=== PATIENT | male | born 1985 | race Caucasian/White ===

== ENCOUNTER 2024-08-27 09:10 | Emergency (ER) | payer MEDICAID, SELFPAY ==
[2024-08-27 10:01] VITALS: BP 170/90; PULSE 64; RESP 16; TEMP 36.8; O2SAT 97; BMI 45.1
--- NOTE | 2024-08-27 10:10 | XR_ITS ---
Examination: CT abdomen with intravenous contrast CT pelvis with intravenous contrast 2-D coronal reconstructions 2-D sagittal reconstructions Date and time of exam:August 27, 2024 1112 hours INDICATIONS: Lower abdominal pain radiating to the left flank with nausea and vomiting today. CTDI: vol (mGy) 23.2 DLP: (mGycm) 1608 Technique: Multiple axial sections of the abdomen and pelvis have been obtained. 64 slice high-resolution scanner used. 3 mm axial sections have been obtained, post intravenous injection 60 cc [id number] 2-D sagittal, coronal reconstructions obtained. Low dose protocols were performed. One or more of the following dose reduction techniques were used; automated exposure control, adjustment of the mA and/or KV according to patient size, use of iterative reconstruction technique. Findings: Diffuse fatty infiltration throughout the liver, no focal liver or splenic lesions No gallstones No pancreatic or adrenal mass Minimal left hydronephrosis secondary to 2 mm distal left ureterovesical junction calculus No right hydronephrosis Aorta normal size No bowel obstruction Normal appendix No diverticulitis No prostatomegaly IMPRESSION: Minimal left hydronephrosis secondary to 2 mm distal left ureterovesical junction calculus
--- NOTE | 2024-08-27 10:11 | PD.EDRME ---
Rapid Medical Screening Exam RME Arrival date/time: 08/27/24 09:10 This is a 39-year-old male presents emergency department complaints of lower abdominal pain x 2 days. I have greeted and performed a focused initial assessment of this patient. Initial appropriate labs ordered at this time. A comprehensive ED assessment and evaluation of the patient and analysis of all test and completion of medical decision making process will be conducted by additional ED provider. Chief Complaint: Abdominal Pain Time Seen by Provider: 08/27/24 09:34 Vital signs: Vital Signs Temperature 98.2 F 08/27/24 10:01 Pulse Rate 64 08/27/24 10:01 Respiratory Rate 16 08/27/24 10:01 Blood Pressure 170/90 H 08/27/24 10:01 Pulse Oximetry (%) 97 08/27/24 10:01 Oxygen Delivery Method Room Air 08/27/24 10:01
[2024-08-27] MEDS: ONDANSETRON INJ 2 MG/ML INJ 2 ML 4 MG IV (10:27)
[2024-08-27] MEDS: SODIUM CHLORIDE 0.9% 1000 ML 1,000 ML 999 ML IV (10:27)
[2024-08-27] MEDS: MORPHINE SULF INJ 10 MG/ML VIAL 5 MG IVP (10:30)
[2024-08-27 10:34] LABS: Basophils # (Auto) 0.1 Thou/mm3 (0.0-0.2); Basophils % (Auto) 1 % (0-2.5); Eosinophils # (Auto) 0.1 Thou/mm3 (0.0-0.5); Eosinophils % (Auto) 0 % (0-10); Hemoglobin 14.7 g/dL (13.5-16.0); Immature Granulocytes % (Auto) 0 % (0-0); Immature Granulocytes Auto 0.07 Thou/mm3 (0.00-0.00); Lymphocytes # (Auto) 1.6 Thou/mm3 (1.0-4.8); Lymphocytes % (Auto) 9 % (10-50); Mean Corpuscular HGB Conc 33.4 g/dl (31.0-37.0); Mean Corpuscular Hemoglobin 27.1 pg (25.0-35.0); Mean Corpuscular Volume 81 fL (80-100); Monocytes # (Auto) 0.8 Thou/mm3 (0.0-0.8); Monocytes % (Auto) 4 % (0-12); Neutrophils # (Auto) 14.6 Thou/mm3 (1.8-7.7); Neutrophils % (Auto) 85 % (37-80); Nucleated Red Blood Cell % 0 /100 WBC (0); Platelet Count 348 Thou/mm3 (140-440); RDW Standard Deviation 44.7 fL (35.1-43.9); Red Blood Count 5.42 Miln/mm3 (4.50-5.90); White Blood Count 17.2 Thou/mm3 (3.8-10.6)
[2024-08-27 10:59] LABS: Alanine Aminotransferase 21 U/L (10-49); Albumin, Serum 5.2 gm/dL (3.5-5.0); Albumin/Globulin Ratio 1.7 (1.2-2.2); Alkaline Phosphatase 77 U/L (46-116); Anion Gap 9 (7-16); Aspartate Amino Transferase 24 U/L (0-34); BUN/Creatinine Ratio 13 Ratio (12-20); Bilirubin,Total 0.4 mg/dL (0.3-1.2); Blood Urea Nitrogen 15 mg/dL (9-23); Calcium 9.9 mg/dL (8.3-10.6); Calcium (Corrected) 9.9 mg/dL (8.5-10.1); Carbon Dioxide 27.7 mMol/L (20.0-31.0); Chloride 103 mMol/L (98-107); Creatinine (Component) 1.2 mg/dL (0.6-1.3); Estimated Creatinine Clearance 113.4 mL/min (>60); Glucose 177 mg/dL (74-106); Lipase 37 U/L (12-53); Osmolality,Calculated 284 (275-295); Potassium 3.8 mMol/L (3.4-5.1); Sodium 140 mMol/L (136-145); Total Protein 8.2 gm/dL (5.7-8.2); eGFR > 60 See Note
[2024-08-27 11:37] LABS: Collection Type, Urine Clean Catch
[2024-08-27 11:57] LABS: Bacteria,Urine Rare; Bilirubin,Urine Negative (Negative); Blood,Urine 3+ (Negative); Calcium Oxalate Crystals,Urine 1+; Color,Urine Yellow (Lt Yel-Yel); Glucose, Urine Negative (Negative); Hyaline Casts,Urine < 1 /hpf (0-1); Ketones,Urine 1+ (Negative); Leukocyte Esterase,Urine Negative (Negative); Nitrite,Urine Negative (Negative); Protein,Urine 1+ (Neg - Trace); RBC,Urine 191 /hpf (0-3); Specific Gravity,Urine 1.047 (1.001-1.035); Squamous Epithelial Cell,Urine 1 /hpf (0-5); WBC,Urine 4 /hpf (0-5)
[2024-08-27 12:01] LABS: Clarity,Urine Hazy (Clear/Hazy); Sperm,Urine Present
[2024-08-27] MEDS: TAMSULOSIN HCL 0.4 MG CAPSULE PO (13:24)
[2024-08-27] MEDS: KETOROLAC INJ 30 MG/ML VIAL IVP (13:24)
--- NOTE | 2024-08-27 14:13 | PD.EDABDPN ---
ED Abdominal Pain RME/HPI General Chief Complaint: Abdominal Pain Stated complaint: ABD PAIN Time seen by provider: 08/27/24 09:34 Arrival date/time: 08/27/24 09:10 This is a 39-year-old male who presented to the emergency department with complaints of bilateral flank and abdominal pain that began this morning. Patient denied fever, chills no nausea or vomiting. Source: patient and family Mode of arrival: ambulatory RME / HPI RME / HPI narrative: 08/27/24 09:10 This is a 39-year-old male presents emergency department complaints of lower abdominal pain x 2 days. I have greeted and performed a focused initial assessment of this patient. Initial appropriate labs ordered at this time. A comprehensive ED assessment and evaluation of the patient and analysis of all test and completion of medical decision making process will be conducted by additional ED provider. Related Data Previous Rx's ?Medication ?Instructions ?Recorded lorazepam 1 mg tablet (Ativan) 1 mg PO BID PRN anxiety #20 tabs 02/16/20 lorazepam 1 mg tablet (Ativan) 1 mg PO BID PRN anxiety #20 tabs 02/16/20 lorazepam 1 mg tablet (Ativan) 1 mg PO BID PRN anxiety #20 tabs 02/16/20 lorazepam 1 mg tablet (Ativan) 1 mg PO BID PRN anxiety #20 tabs 02/16/20 cephalexin 500 mg capsule 500 mg PO Q8H 7 days #21 caps 08/27/24 ibuprofen 800 mg tablet (IBU) 800 mg PO Q8H #20 tabs 08/27/24 tamsulosin 0.4 mg capsule (Flomax) 0.4 mg PO QDAY #5 caps 08/27/24 Allergies Allergy/AdvReac Type Severity Reaction Status Date / Time No Known Allergies Allergy Verified 02/16/20 04:04 Review of Systems Review of Systems Systems Reviewed: All systems reviewed, normal except as documented Narrative Review of Systems: Gen: No fever, no chills, no weight loss EYES: No discharge, no visual changes, no pain HEENT: No ear pain, no congestion, no sore throat PULM: No shortness of breath, no cough, no congestion CV: No chest pain, no dyspnea on exertion, no palpitations GI: No nausea, no vomiting, no diarrhea, no pain, no constipation : +flank pain, + abdominal pain Musc/skel: No joint pain, no back pain Skin: No rash? Psyc: No hallucinations, no depression Heme/Lymph: No easy bleeding or bruising tendencies Neuro: No weakness, no headache ED Exam Narrative Physical exam: general:39-year-old male appears to be in pain diaphoretic, Sittiing in Exam table in no acute distress, answering questions appropriately HENT: normocephalic, atraumatic, EOMI, PERRLA, moist mucous membranes Chest: chest wall is nontender Cardiac: regular rate and rhythm, normal S1 and S2, no murmurs, rubs, or gallops, capillary refill ?2 seconds Pulmonary: clear to auscultation bilaterally, no wheezing, crackles, or rhonchi Abdominal: active bowel sounds, soft, nontender, nondistended, + CVA tenderness Neuro: A&OX3, CN II-XII intact, sensation grossly intact bilaterally in UE and LE. Skin: no rashes, no ecchymosis Ext: no lower extremity edema Course Quality Measures none Orders Category Date Time Status CT Screening NOW Care 08/27/24 10:11 Completed Insert IV NOW Care 08/27/24 10:[address] abdomen pelvis w con Stat Exams 08/27/24 10:10 Completed CBC Stat Lab 08/27/24 10:18 Completed Comprehensive Metabolic Panel Stat Lab 08/27/24 10:18 Completed Lipase Stat Lab 08/27/24 10:18 Completed Urinalysis Stat Lab 08/27/24 11:33 Completed Ketorolac Inj [Toradol Inj] Med 08/27/24 12:43 Discontinued 30 mg IVP X1 ONE Morphine Inj Med 08/27/24 10:12 Discontinued 5 mg IVP X1 ONE Ondansetron Inj [Zofran Inj] Med 08/27/24 10:11 Discontinued 4 mg IV X1 ONE Sodium Chloride 0.9% 1000 ml [Ns] 1,000 ml Med 08/27/24 10:11 Discontinued IV 999 mls/hr Tamsulosin HCl [Flomax] Med 08/27/24 12:43 Discontinued 0.4 mg PO X1 ONE Vital Signs Vital signs: Vital Signs Temperature 98.2 F 08/27/24 10:01 Pulse Rate 64 08/27/24 10:01 Respiratory Rate 16 08/27/24 10:01 Blood Pressure 170/90 H 08/27/24 10:01 Pulse Oximetry (%) 97 08/27/24 10:01 Oxygen Delivery Method Room Air 08/27/24 10:01 Abdominal Pain MDM MDM Narrative MDM Narrative:: 39-year-old male was evaluated for abdominal pain bilateral flank pain. CT demonstrated he has a stone no severe hydronephrosis noted. After patient was given pain medication and hydration patient symptoms improved to 0 out of 10 pain. Patient's labs reviewed No acute renal failure, no electrolyte imbalance. Urinalysis positive for hematuria. no reported fever nausea or vomiting. Urine output normal here in ED. Patient will be discharged home with a course of antibiotics, Flomax and close follow-up with his PCP. Patient data External records reviewed:: [facility] previous records Clinical information provided by:: patient Social determinants that could affect healthcare access:: none Patient has the following chronic illnesses:: none How is presenting disease/condition affected by chronic disease/condition?: no chronic disease Evaluation data The following diagnostics were reviewed and interpreted by me:: lab results and radiology exam(s) Lab and/or radiology exams considered but not ordered:: no Interpretation Summary: Examination: CT abdomen with intravenous contrast CT pelvis with intravenous contrast 2-D coronal reconstructions 2-D sagittal reconstructions Date and time of exam:August 27, 2024 1112 hours INDICATIONS: Lower abdominal pain radiating to the left flank with nausea and vomiting today. CTDI: vol (mGy) 23.2 DLP: (mGycm) 1608 Technique: Multiple axial sections of the abdomen and pelvis have been obtained. 64 slice high-resolution scanner used. 3 mm axial sections have been obtained, post intravenous injection 60 cc [id number] 2-D sagittal, coronal reconstructions obtained. Low dose protocols were performed. One or more of the following dose reduction techniques were used; automated exposure control, adjustment of the mA and/or KV according to patient size, use of iterative reconstruction technique. Findings: Diffuse fatty infiltration throughout the liver, no focal liver or splenic lesions No gallstones No pancreatic or adrenal mass Minimal left hydronephrosis secondary to 2 mm distal left ureterovesical junction calculus No right hydronephrosis Aorta normal size No bowel obstruction Normal appendix No diverticulitis No prostatomegaly IMPRESSION: Minimal left hydronephrosis secondary to 2 mm distal left ureterovesical junction calculus Medications / Prescriptions Medications or Prescriptions considered but not ordered:: no Medication administrations:: Medication Administration History Discontinued Medications Sodium Chloride (Ns) 1,000 mls @ 999 mls/hr IV .Q1H1M ONE Stop: 08/27/24 11:11 Last Infusion: 08/27/24 11:30 Dose: Infused Documented By: Admin: 08/27/24 10:27 Dose: 999 mls/hr Documented By: AMBER Ketorolac Tromethamine (Ketorolac Inj 30 Mg/Ml Vial) 30 mg IVP X1 ONE Stop: 08/27/24 12:44 Last Admin: 08/27/24 13:24 Dose: 30 mg Documented By: AMBER Morphine Sulfate (Morphine Sulf Inj 10 Mg/Ml Vial) 5 mg IVP X1 ONE Stop: 08/27/24 10:13 Last Admin: 08/27/24 10:30 Dose: 5 mg Documented By: AMBER Ondansetron HCl (Ondansetron Inj 2 Mg/Ml Inj 2 Ml) 4 mg IV X1 ONE; Protocol Stop: 08/27/24 10:12 Last Admin: 08/27/24 10:27 Dose: 4 mg Documented By: AMBER Tamsulosin HCl (Tamsulosin Hcl 0.4 Mg Capsule) 0.4 mg PO X1 ONE Stop: 08/27/24 12:44 Last Admin: 08/27/24 13:24 Dose: 0.4 mg Documented By: AMBER all medications administered and effective Consultations Consultation(s) initiated? (list below): No Diagnosis Differential diagnosis abdominal pain: abdominal pain, acute appendicitis, calculus of kidney, constipation, diverticulitis, gastroenteritis, pancreatitis and small bowel obstruction Most likely diagnosis given after review of the tests above:: renal calculi, Admission Indicated Admission indicated?: not indicated Admission Request Was there a request for admission?: No Disposition Plan Disposition Plan: Discharge Discharge Attestation Discharge Attestation: The patient and all family members were given an opportunity to ask questions and understood the discharge instructions. Discharge instructions specifically effects, indications for sooner follow up or return to the emergency department, and the expected course of current diagnosis. Patient condition: Stable Discharge Plan Plan Patient Disposition: HOME (Self Care) Patient condition on transfer: Stable Prescriptions/Referrals Prescriptions/Med Rec: New tamsulosin [Flomax] 0.4 mg capsule 0.4 mg PO QDAY Qty: 5 0RF cephalexin 500 mg capsule 500 mg PO Q8H 7 Days Qty: 21 0RF ibuprofen [IBU] 800 mg tablet 800 mg PO Q8H Qty: 20 0RF No Action lorazepam [Ativan] 1 mg tablet 1 mg PO BID PRN (Reason: anxiety) Qty: 20 0RF lorazepam [Ativan] 1 mg tablet 1 mg PO BID PRN (Reason: anxiety) Qty: 20 0RF lorazepam [Ativan] 1 mg tablet 1 mg PO BID PRN (Reason: anxiety) Qty: 20 0RF lorazepam [Ativan] 1 mg tablet 1 mg PO BID PRN (Reason: anxiety) Qty: 20 0RF Referrals: Samaria Lim PA-C [Primary Care Provider] - In 1 week Problem List Clinical Impression: Calculus of kidney Patient/Caregiver Discharge Instructions Discharge Activity: activity as tolerated Education Materials: ED Kidney Stone w/ Colic Additional Instructions: Please follow-up with your primary doctor you might need a urology referral. -Take the Flomax for 5 days -Antibiotic as directed. -Increase fluid intake -NSAID for pain control Return to the emergency department this any worsening symptoms change in condition. Print Language: Upper Sorbian Stand Alone Forms: Radha Award Info., Patient Portal Info Letter PA/EDE Supervising Physician PA/EDE Supervising Physician: Dr. Chase
== END 2024-08-27 15:04 | disposition home or self-care (01) ==
PROVIDERS: Nurse Practitioner Primary Care; Emergency Provider Emergency Medicine; PCP Physician Assistant
DX: N13.2 Hydronephrosis with renal and ureteral calculous obstruction (principal)
CPT/HCPCS: 36415; 74177; 80053; 81001; 83690; 85025; 96361; 96374; 96375; 99285; A4649; J1885; J2270; J2405; J7030; Q9967; A9270